=== PATIENT | male | born 1945 | race Caucasian/White ===

== ENCOUNTER 2020-06-19 14:53 | Outpatient (CLI) | payer MEDICARE, SELFPAY ==
[2020-06-19 15:24] LABS: Hematocrit 45.1 % (42.0-52.0); Mean Corpuscular HGB Conc 35.5 g/dl (32-36); Mean Corpuscular Hemoglobin 33.4 pg (26-34); Mean Corpuscular Volume 94.2 fl (80-100); Mean Platelet Volume 9.7 fl (7.4-10.4); Platelet Count Result 156 k/mm3 (150-375); Red Blood Count 4.79 M/mm3 (4.6-6.20); Red Cell Distribution Width 12.9 % (11.5-14.5); White Blood Count 6.8 K/mm3 (4.5-10.0)
[2020-06-19 15:26] LABS: Add Urine Microscopic? NO; Appearance Urine Clear (Clear); Bilirubin Urine Negative (Negative); Blood Urine Negative (Negative); Color Urine Yellow (Yellow); Glucose Urine UA Negative (Negative); Ketones Urine Negative (Negative); Leukocyte Esterase Ur Negative LEU/UL (NEGATIVE); Nitrate Urine Negative (Negative); Protein Urine Negative (Negative); Specific Grav Ur 1.013 (1.001-1.035); Urobilinogen Urine Negative mg/dL (<2.0)
[2020-06-19 16:04] LABS: Creatinine Urine 78.3 mg/dL
[2020-06-19 16:20] LABS: LDL Cholesterol Direct 76 mg/dL
[2020-06-19 16:25] LABS: Alanine Aminotransferase 20 U/L (4-50); Albumin Level 4.1 g/dL (3.5-5.1); Alkaline Phosphatase 79 U/L (38-126); Anion Gap 9 mmol/L (8-16); Aspartate Amino Transferase 24 U/L (17-59); Bilirubin,Total 1.4 mg/dL (0.2-1.3); Blood Urea Nitrogen 17 mg/dL (9-20); Calcium 9.1 mg/dL (8.4-10.2); Carbon Dioxide 28 mmol/L (22-30); Chloride 102 mmol/L (98-107); Cholesterol 132 mg/dL (0-200); Estimated Glomerular Filt Rate 59; Glucose 106 mg/dL (75-110); HDL Direct 31 mg/dL; Sodium 139 mmol/L (137-145); Triglycerides 128 mg/dL (<150)
[2020-06-19 16:39] LABS: Thyroid Stimulating Hormone 0.978 uIU/mL (0.465-4.680)
[2020-06-19 17:02] LABS: MALB Creatinine Ratio < 7.7 mg/g (0-30); Microalbumin Urine Random < 6.0 mg/L (0-16.7)
[2020-06-19 17:17] LABS: Potassium 3.9 mmol/L (3.4-5.0)
== END 2020-06-19 14:54 | disposition home or self-care (01) ==
PROVIDERS: PCP Family Medicine; Referring Provider Nurse Practitioner Adult Health; Visit Provider Family Medicine
DX: E11.65 Type 2 diabetes mellitus with hyperglycemia (principal); Z79.4 Long term (current) use of insulin; E78.2 Mixed hyperlipidemia; I10 Essential (primary) hypertension; R53.83 Other fatigue
CPT/HCPCS: 36415; 80053; 80061; 81003; 82043; 84443; 85027

== ENCOUNTER 2020-12-18 15:49 | Outpatient (CLI) | payer MEDICARE, SELFPAY | END 2020-12-18 15:50 | disposition home or self-care (01) | LOC: ANHCOVIDVC 15:49 | PROVIDERS: PCP Family Medicine | DX: Z23 Encounter for immunization (principal) | CPT/HCPCS: 0001A; 91300 ==

== ENCOUNTER 2020-12-22 11:44 | Outpatient (CLI) | payer MEDICARE, SELFPAY ==
[2020-12-22 12:28] LABS: Alanine Aminotransferase 28 U/L (4-50); Albumin Level 4.1 g/dL (3.5-5.1); Alkaline Phosphatase 84 U/L (38-126); Anion Gap 5 mmol/L (8-16); Aspartate Amino Transferase 28 U/L (17-59); Bilirubin,Total 1.3 mg/dL (0.2-1.3); Blood Urea Nitrogen 18 mg/dL (9-20); Calcium 9.1 mg/dL (8.4-10.2); Carbon Dioxide 32 mmol/L (22-30); Chloride 104 mmol/L (98-107); Cholesterol 130 mg/dL (0-200); Estimated Glomerular Filt Rate 59; Glucose 103 mg/dL (75-110); HDL Direct 30 mg/dL; Potassium 4.2 mmol/L (3.4-5.0); Sodium 141 mmol/L (137-145); Triglycerides 145 mg/dL (<150)
[2020-12-22 12:39] LABS: LDL Cholesterol Direct 70 mg/dL
== END 2020-12-22 11:45 | disposition home or self-care (01) ==
PROVIDERS: PCP Family Medicine; Visit Provider Nurse Practitioner Family
DX: E11.9 Type 2 diabetes mellitus without complications (principal); I11.9 Hypertensive heart disease without heart failure; I25.10 Atherosclerotic heart disease of native coronary artery without angina pectoris; E78.2 Mixed hyperlipidemia
CPT/HCPCS: 36415; 80053; 80061

== ENCOUNTER 2021-01-08 15:47 | Outpatient (CLI) | payer MEDICARE, SELFPAY | END 2021-01-08 15:48 | disposition home or self-care (01) | LOC: ANHCOVIDVC 15:47 | PROVIDERS: PCP Family Medicine | DX: Z23 Encounter for immunization (principal) | CPT/HCPCS: 0002A; 91300 ==

== ENCOUNTER 2021-04-24 10:47 | Outpatient (CLI) | payer MEDICARE, SELFPAY ==
[2021-04-24 11:20] LABS: Basophils Absolute Auto 0.1 K/mm3 (0.0-0.1); Basophils Percent Auto 0.9 % (0.2-1.2); Eosinophils Absolute Auto 0.3 K/mm3 (0-0.3); Hematocrit 48.3 % (42.0-52.0); Hemoglobin 16.4 g/dL (14.0-18.0); Immature Granulocyte Absolute 0.02 K/mm3 (0.00-0.031); Immature Granulocyte Percent A 0.3 % (0-0.5); Lymphocytes Absolute Auto 1.48 K/mm3 (0.9-3.2); Lymphocytes Percent Auto 21.8 % (18.3-44.2); Mean Corpuscular Hemoglobin 32.3 pg (26-34); Mean Corpuscular Volume 95.1 fl (80-100); Mean Platelet Volume 9.8 fl (7.4-10.4); Monocytes Absolute Auto 0.6 K/mm3 (0.1-0.6); Neutrophils Absolute Auto 4.3 K/mm3 (1.3-6.7); Platelet Count Result 155 k/mm3 (150-375); Red Blood Count 5.08 M/mm3 (4.6-6.20); Red Cell Distribution Width 13.2 % (11.5-14.5); White Blood Count 6.8 K/mm3 (4.5-10.0)
[2021-04-24 11:33] LABS: Alanine Aminotransferase 22 U/L (4-50); Albumin Level 4.2 g/dL (3.5-5.1); Alkaline Phosphatase 98 U/L (38-126); Anion Gap 10 mmol/L (8-16); Aspartate Amino Transferase 28 U/L (17-59); Bilirubin,Total 1.5 mg/dL (0.2-1.3); Blood Urea Nitrogen 21 mg/dL (9-20); Calcium 9.5 mg/dL (8.4-10.2); Carbon Dioxide 27 mmol/L (22-30); Chloride 104 mmol/L (98-107); Estimated Glomerular Filt Rate 54; Glucose 105 mg/dL (65-110); Potassium 3.9 mmol/L (3.4-5.0); Sodium 141 mmol/L (137-145)
[2021-04-24 11:47] LABS: Add Urine Microscopic? YES; Appearance Urine Clear (Clear); Bilirubin Urine Negative (Negative); Blood Urine Negative (Negative); Color Urine Straw (Yellow); Glucose Urine UA 3+ mg/dL (Negative); Ketones Urine Negative (Negative); Leukocyte Esterase Ur Negative LEU/UL (NEGATIVE); Mucus Urine Rare /lpf; Nitrate Urine Negative (Negative); Protein Urine Negative (Negative); RBC Urine 0-2 /hpf (0-2); Specific Grav Ur 1.011 (1.001-1.035); Squamous Epithelial Cell Urine Rare /hpf (Few); Urobilinogen Urine Negative mg/dL (<2.0); WBC Urine 0-3 /hpf (0-3)
[2021-04-24 12:03] LABS: Prostate Specific Antigen 1.6 ng/mL (< OR = 4.0)
== END 2021-04-24 10:48 | disposition home or self-care (01) ==
PROVIDERS: PCP Family Medicine; Visit Provider Nurse Practitioner Family
DX: E78.5 Hyperlipidemia, unspecified (principal); I25.10 Atherosclerotic heart disease of native coronary artery without angina pectoris; I11.9 Hypertensive heart disease without heart failure; E11.9 Type 2 diabetes mellitus without complications; Z79.4 Long term (current) use of insulin; Z12.5 Encounter for screening for malignant neoplasm of prostate
CPT/HCPCS: 36415; 80053; 81001; 84153; 84443; 85025; G0103

== ENCOUNTER 2021-07-05 16:09 | Outpatient (CLI) | payer MEDICARE, SELFPAY ==
[2021-07-05 16:57] LABS: Alanine Aminotransferase 46 U/L (4-50); Albumin Level 4.5 g/dL (3.5-5.1); Alkaline Phosphatase 85 U/L (38-126); Anion Gap 10 mmol/L (8-16); Aspartate Amino Transferase 35 U/L (17-59); Bilirubin,Total 1.5 mg/dL (0.2-1.3); Blood Urea Nitrogen 28 mg/dL (9-20); Calcium 9.1 mg/dL (8.4-10.2); Carbon Dioxide 26 mmol/L (22-30); Chloride 105 mmol/L (98-107); Estimated Glomerular Filt Rate > 60; Glucose 110 mg/dL (65-110); Potassium 3.9 mmol/L (3.4-5.0); Sodium 141 mmol/L (137-145)
[2021-07-05 17:14] LABS: Creatinine Urine 128.7 mg/dL
[2021-07-05 17:20] LABS: MALB Creatinine Ratio 6.1 mg/g (0-30); Microalbumin Urine Random 7.9 mg/L (0-16.7)
== END 2021-07-05 16:10 | disposition home or self-care (01) ==
PROVIDERS: PCP Family Medicine
DX: E11.65 Type 2 diabetes mellitus with hyperglycemia (principal); Z79.4 Long term (current) use of insulin
CPT/HCPCS: 36415; 80053; 82043

== ENCOUNTER 2021-09-14 08:06 | Outpatient (CLI) | payer MEDICARE, SELFPAY ==
--- NOTE | ~2021-09-14 | CT_ITS ---
EXAMINATION: CT lumbar spine wo con DATE: 09/14/2021 08:33 INDICATION: Lumbar radicular pain. TECHNIQUE: Computed tomography (CT) of the lumbar spine was performed without intravenous contrast. A utomated exposure control and iterative reconstruction technique were employed. The dose-length produ ct was 1389.44 mGy-cm. COMPARISON: None FINDINGS: There is 4 degrees dextrocurvature of lumbar spine. There is mild chronic anterior wedging of T11 and T12 vertebral bodies. There is 9 mm anterolisthesis of L4 on L5. There is mildly decreased disc height at L1-L2 and L2-L3, moderately decreased disc height at L4-L5, and mildly decreased disc height at L5-S1. The following disc levels are specifically discussed: L1-L2: The disc is bulging. There is mild bilateral facet joint osteoarthritis. There is mild bilater al neural foraminal stenosis. There is mild central canal stenosis. L2-L3: The disc is bulging. There is mild bilateral facet joint osteoarthritis. There is moderate dylan ateral neural foraminal stenosis. There is mild central canal stenosis. L3-L4: The disc is bulging. There is severe right and moderate left facet joint osteoarthritis. There is moderate right and mild left neural foraminal stenosis. There is mild central canal stenosis. L4-L5: The disc is bulging. There is severe bilateral facet joint osteoarthritis. There is moderate b ilateral neural foraminal stenosis. There is severe central canal stenosis. L5-S1: The disc is bulging. There is severe right and moderate left facet joint osteoarthritis. There is moderate right and mild left neural foraminal stenosis. There is mild central canal stenosis. IMPRESSION: 1. Severe lumbar spondylosis. Reviewed, dictated and finalized at location [facility]. R
== END 2021-09-14 08:07 | disposition home or self-care (01) ==
LOC: ANHIMG 08:09
PROVIDERS: PCP Family Medicine
DX: M47.26 Other spondylosis with radiculopathy, lumbar region (principal)
CPT/HCPCS: 72131

== ENCOUNTER 2021-11-14 15:26 | Outpatient (CLI) | payer MEDICARE, SELFPAY ==
--- NOTE | ~2021-11-14 | CT_ITS ---
EXAMINATION: CT brain wo con DATE: 11/14/2021 15:46 INDICATION: Diplopia. Right facial droop, right leg numbness TECHNIQUE: Computed tomography (CT) of the head was performed without intravenous contrast. The mA wa s adjusted according to patient size. Iterative reconstruction technique was employed. Exam dose: 68 1.00 mGy-cm total exam DLP. COMPARISON: 07/07/2019 CTA brain/carotid 07/07/2019 CT brain FINDINGS: Vertebral, basilar and bilateral carotid and supraclinoid internal carotid artery calcifica tions are noted. There is nonspecific diminished attenuation of the cerebral white matter, likely due to chronic small vessel ischemic changes. Again noted are scattered small chronic lacunar infarcts of the bilateral basal ganglia. Small chroni c lacunar infarct in the anterior limb of left internal capsule. There is moderately prominent cerebral and moderate cerebellar volume loss. No intracranial mass lesion or hemorrhage or recent cerebrovascular accident is evident. CT is not se nsitive for detection of hyperacute nonhemorrhagic infarct. No orbital or sellar or suprasellar mass lesion is evident. No subdural or epidural hematoma is detected. No fracture or bone destruction of the cranial vault. No skull fracture is evident. No skull bone destruction. The paranasal sinuses and mastoid air cells are normally developed and aerated. IMPRESSION: Cerebral atherosclerosis, chronic small vessel ischemic changes of the cerebral white ma tter and bilateral basal ganglia and anterior limb left internal capsule chronic lacunar infarcts No acute intracranial finding Reviewed, dictated and finalized at [facility]. Reviewed, dictated and finalized at location [facility]. DESIGNER IMPRESSION: Cerebral atherosclerosis, chronic small vessel ischemic changes of the cerebral white matter and bilateral basal ganglia and anterior limb left i nternal capsule chronic lacunar infarcts No acute intracranial finding
== END 2021-11-14 15:27 | disposition home or self-care (01) ==
PROVIDERS: PCP Family Medicine
DX: H53.2 Diplopia (principal); I67.9 Cerebrovascular disease, unspecified; I63.9 Cerebral infarction, unspecified
CPT/HCPCS: 70450

== ENCOUNTER 2021-11-14 16:32 | Emergency (ER) | payer MEDICARE, SELFPAY ==
[2021-11-14 17:11] VITALS: BP 152/96; PULSE 77; RESP 18; TEMP 36.6; O2SAT 98
--- NOTE | 2021-11-14 18:45 | ECG_ITS ---
Measurements Intervals [place] Rate: 70 P: 57 MT: 183 QRS: 150 QRSD: 129 T: -10 QT: 427 QTc: 463 Interpretive Statements ATRIAL SENSE- ELECTRONIC VENTRICULAR PACEMAKER BASELINE ARTIFACT- I, II, AVR, V3-V5 NO FURTHER INTERPRETATION IS POSSIBLE ATYPICAL ECG Electronically Signed On 11-14-2021 20:00:58 [employer] by Manpreet Stein D.O.
[2021-11-14 19:42] LABS: Basophils Percent Auto 0.5 % (0.2-1.2); Eosinophils Absolute Auto 0.1 K/mm3 (0-0.3); Eosinophils Percent Auto 0.9 % (0-4.4); Hematocrit 47.5 % (42.0-52.0); Hemoglobin 16.6 g/dL (14.0-18.0); Immature Granulocyte Absolute 0.03 K/mm3 (0.00-0.031); Immature Granulocyte Percent A 0.4 % (0-0.5); Lymphocytes Absolute Auto 1.65 K/mm3 (0.9-3.2); Lymphocytes Percent Auto 21.3 % (18.3-44.2); Mean Corpuscular HGB Conc 34.9 g/dl (32-36); Mean Corpuscular Hemoglobin 33.7 pg (26-34); Mean Corpuscular Volume 96.5 fl (80-100); Mean Platelet Volume 9.6 fl (7.4-10.4); Monocytes Absolute Auto 0.8 K/mm3 (0.1-0.6); Monocytes Percent Auto 10.3 % (2.6-8.5); Neutrophils Absolute Auto 5.2 K/mm3 (1.3-6.7); Neutrophils Percent Auto 66.6 % (45.5-73.1); Platelet Count Result 156 k/mm3 (150-375); Red Blood Count 4.92 M/mm3 (4.6-6.20); Red Cell Distribution Width 12.8 % (11.5-14.5); White Blood Count 7.8 K/mm3 (4.5-10.0)
[2021-11-14 19:53] LABS: Prothrombin Time 13.5 Seconds (11.1-14.7)
[2021-11-14 19:59] LABS: Alanine Aminotransferase 26 U/L (4-50); Albumin Level 4.6 g/dL (3.5-5.1); Alkaline Phosphatase 76 U/L (38-126); Anion Gap 8 mmol/L (8-16); Aspartate Amino Transferase 32 U/L (17-59); Bilirubin,Total 1.7 mg/dL (0.2-1.3); Blood Urea Nitrogen 23 mg/dL (9-20); Calcium 9.8 mg/dL (8.4-10.2); Carbon Dioxide 26 mmol/L (22-30); Chloride 108 mmol/L (98-107); Estimated CRCL calculation 69 ml/min; Estimated Glomerular Filt Rate > 60; Glucose 111 mg/dL (65-110); Potassium 3.8 mmol/L (3.4-5.0); Sodium 142 mmol/L (137-145)
[2021-11-14 20:10] LABS: Troponin I < 0.012 ng/mL (0.000-0.034)
--- NOTE | 2021-11-14 20:54 | ED.NEUROSD ---
HPI - Neuro Symptoms/Deficit General Chief Complaint: Neuro Symptoms/Deficit Stated Complaint: neuro symptoms Time Seen by Provider: 11/14/21 18:45 Source: patient Mode of arrival: ambulatory Limitations: no limitations History of Present Illness HPI Narrative: 76-year-old with a history of diabetes, CVA, CAD s/p pacemaker here with complaints of drooping of the right eye for past 1 week. Patient states that he has seen his primary doctor who referred him to the eye doctor and who later referred him to the ER. Patient had an outpatient CT scan this afternoon. he also complains of lower back pain for which he sees pain management doctor who referred them to physical therapy patient states that physical therapy was hurting him more so he went to see a chiropractor. He states he is having headache because of his unable to sleep through the right eye. No motor weakness. Onset (ago): week(s) (1) Location: other (Right) History of same: Yes Severity: moderate Quality: other (Drooping of the right eye lid) Relieving factors: none Exacerbating factors: none Context: gradual onset Related Data Home Medications Medication Instructions Recorded Confirmed apixaban 5 mg tablet 5 mg PO BID 06/19/20 06/29/21 carvedilol 6.25 mg tablet 6.25 mg PO Q12H 06/19/20 06/29/21 furosemide 40 mg tablet 40 mg PO QAM 06/19/20 06/29/21 gabapentin 300 mg capsule 300 mg PO TID 06/19/20 06/29/21 insulin lispro 100 unit/mL 17 unit SUB-Q QACBREAK ml 06/19/20 06/29/21 subcutaneous half-unit pen isosorbide mononitrate 60 mg 60 mg PO DAILY 06/19/20 06/29/21 tablet,extended release 24 hr liraglutide 0.6 mg/0.1 mL (18 mg/3 0.6 mg SUB-Q DAILY 06/19/20 06/29/21 mL) subcutaneous pen injector lovastatin 40 mg tablet 40 mg PO DAILY 06/19/20 06/29/21 magnesium oxide 500 mg tablet 500 mg PO DAILY 06/19/20 06/29/21 olmesartan 40 mg tablet 40 mg PO DAILY 06/19/20 06/29/21 omega-3 fatty acids 1,000 mg 1,000 mg PO DAILY 06/19/20 06/29/21 capsule potassium chloride 10 mEq 20 meq PO BID tablet 06/19/20 06/29/21 tablet,extended release ranolazine 500 mg tablet,extended 500 mg PO Q12H 06/19/20 06/29/21 release,12 hr Allergies Allergy/AdvReac Type Severity Reaction Status Date / Time hydrochlorothiazide Allergy Intermediate Unknown Verified 11/14/21 18:34 niacin Allergy Intermediate Unknown Verified 11/14/21 18:34 No Known Allergies Allergy Unknown Verified 08/23/21 10:16 Review of Systems Review of Systems: All systems reviewed & are unremarkable except as noted in HPI and below Constitutional: Constitutional: Reports no additional constitutional complaints Eyes: Eyes: Reports as per HPI ENT: Reports system reviewed and no additional complaints, except as documented Cardiovascular: Cardiovascular: Reports no additional cardiovascular complaints Respiratory: Respiratory: Reports no additional respiratory complaints Gastrointestinal: Gastrointestinal: Reports no additional gastrointestinal complaints Musculoskeletal: Musculoskeletal: Reports no additional musculoskeletal complaints Integumentary/Breasts: Skin/Breast: Reports system reviewed and no additional complaints, except as docu PMFSH Past Medical History Medical History CAD (coronary artery disease) GERD (gastroesophageal reflux disease) History of CVA (cerebrovascular accident) HLD (hyperlipidemia) Hypertension with heart disease Long-term insulin use Surgical History Surgical History History of cardiac pacemaker Family History Family History Mother Hypertension Father Cerebrovascular accident Other Family history of cardiovascular disease Social History Social History Smoking status: Never smoker Second hand tobacco smoke exposure: No Alcohol intake: form
== END 2021-11-14 21:11 | disposition home or self-care (01) ==
PROVIDERS: Emergency Provider Family Medicine; PCP Family Medicine
DX: H02.401 Unspecified ptosis of right eyelid (principal); I25.10 Atherosclerotic heart disease of native coronary artery without angina pectoris; E78.5 Hyperlipidemia, unspecified; I11.9 Hypertensive heart disease without heart failure; K21.9 Gastro-esophageal reflux disease without esophagitis; Z86.73 Personal history of transient ischemic attack (TIA), and cerebral infarction without residual deficits; Z79.01 Long term (current) use of anticoagulants; Z79.4 Long term (current) use of insulin; Z95.0 Presence of cardiac pacemaker
CPT/HCPCS: 36415; 70450; 80053; 84484; 85025; 85610; 93005; 99284

== ENCOUNTER 2021-12-03 10:36 | Outpatient (CLI) | payer MEDICARE, SELFPAY ==
[2021-12-03 11:53] LABS: Basophils Percent Auto 0.5 % (0.2-1.2); Eosinophils Absolute Auto 0.1 K/mm3 (0-0.3); Eosinophils Percent Auto 1.5 % (0-4.4); Hematocrit 44.3 % (42.0-52.0); Hemoglobin 15.7 g/dL (14.0-18.0); Immature Granulocyte Absolute 0.03 K/mm3 (0.00-0.031); Immature Granulocyte Percent A 0.5 % (0-0.5); Immature Platelet Fraction Pct 3.3 % (0.9-11.2); Lymphocytes Absolute Auto 1.27 K/mm3 (0.9-3.2); Lymphocytes Percent Auto 21.6 % (18.3-44.2); Mean Corpuscular HGB Conc 35.4 g/dl (32-36); Mean Corpuscular Hemoglobin 34.1 pg (26-34); Mean Corpuscular Volume 96.1 fl (80-100); Mean Platelet Volume 9.6 fl (7.4-10.4); Monocytes Absolute Auto 0.7 K/mm3 (0.1-0.6); Monocytes Percent Auto 11.4 % (2.6-8.5); Neutrophils Absolute Auto 3.8 K/mm3 (1.3-6.7); Neutrophils Percent Auto 64.5 % (45.5-73.1); Platelet Count Result 157 k/mm3 (150-375); Red Blood Count 4.61 M/mm3 (4.6-6.20); White Blood Count 5.9 K/mm3 (4.5-10.0)
[2021-12-03 11:55] LABS: Add Urine Microscopic? NO; Appearance Urine Clear (Clear); Bilirubin Urine Negative (Negative); Blood Urine Negative (Negative); Color Urine Yellow (Yellow); Glucose Urine UA Negative (Negative); Ketones Urine Negative (Negative); Leukocyte Esterase Ur Negative LEU/UL (Negative); Nitrate Urine Negative (Negative); Protein Urine Negative (Negative); Specific Grav Ur 1.021 (1.001-1.035); Urobilinogen Urine Negative mg/dL (<2.0)
[2021-12-03 12:01] LABS: Alanine Aminotransferase 29 U/L (4-50); Alkaline Phosphatase 97 U/L (38-126); Anion Gap 4 mmol/L (8-16); Aspartate Amino Transferase 27 U/L (17-59); Bilirubin,Total 0.8 mg/dL (0.2-1.3); Blood Urea Nitrogen 20 mg/dL (9-20); Calcium 8.8 mg/dL (8.4-10.2); Carbon Dioxide 27 mmol/L (22-30); Chloride 108 mmol/L (98-107); Estimated Glomerular Filt Rate > 60; Glucose 130 mg/dL (65-110); Potassium 4.1 mmol/L (3.4-5.0); Sodium 139 mmol/L (137-145)
[2021-12-03 12:04] LABS: INR 1.1; Prothrombin Time 14.1 Seconds (11.1-14.7)
[2021-12-03 12:05] LABS: Partial Thromboplastin Time 31.4 SECONDS (22.3-36.8)
== END 2021-12-03 10:37 | disposition home or self-care (01) ==
PROVIDERS: PCP Family Medicine; Visit Provider Internal Medicine Cardiovascular Disease
DX: M54.31 Sciatica, right side (principal); M46.90 Unspecified inflammatory spondylopathy, site unspecified; R07.9 Chest pain, unspecified; E78.5 Hyperlipidemia, unspecified; I63.50 Cerebral infarction due to unspecified occlusion or stenosis of unspecified cerebral artery; I12.9 Hypertensive chronic kidney disease with stage 1 through stage 4 chronic kidney disease, or unspecified chronic kidney disease; N18.2 Chronic kidney disease, stage 2 (mild); Z95.810 Presence of automatic (implantable) cardiac defibrillator; I42.9 Cardiomyopathy, unspecified; E11.9 Type 2 diabetes mellitus without complications; I25.10 Atherosclerotic heart disease of native coronary artery without angina pectoris; G47.30 Sleep apnea, unspecified
CPT/HCPCS: 36415; 80053; 81003; 85025; 85055; 85610; 85730

== ENCOUNTER → 2022-05-30 09:10 | Outpatient (CLI) | payer MEDICARE, SELFPAY ==
--- NOTE | ~2022-05-30 | CT_ITS ---
EXAMINATION: CT lumbar spine wo con DATE: 05/30/2022 09:28 INDICATION: Low back pain radiating down the legs. TECHNIQUE: Computed tomography (CT) of the lumbar spine was performed without intravenous contrast. A utomated exposure control and iterative reconstruction technique were employed. The dose-length produ ct was 845.61 mGy-cm. COMPARISON: Lumbar spine CT 09/14/2021 FINDINGS: There is 4 degrees dextrocurvature of lumbar spine. There is 9 mm anterolisthesis of L4 on L5 and 6 mm retrolisthesis of L5 on S1. There is mild chronic anterior wedging of T12 and L1 vertebra l bodies. There is mildly decreased disc height at L1-L2, moderately decreased disc height at L2-L3 a nd L4-L5, and mildly decreased disc height at L5-S1. The following disc levels are specifically discu ssed: L1-L2: The disc is bulging. There is mild right and moderate left facet joint osteoarthritis. There i s mild bilateral neural foraminal stenosis. There is mild central canal stenosis. L2-L3: The disc is bulging. There is moderate bilateral facet joint osteoarthritis. There is mild rig ht and moderate left neural foraminal stenosis. There is mild central canal stenosis. L3-L4: The disc is bulging. There is severe right and moderate left facet joint osteoarthritis. There is mild bilateral neural foraminal stenosis. There is mild central canal stenosis. L4-L5: The disc is bulging. There is severe bilateral facet joint osteoarthritis. There is moderate b ilateral neural foraminal stenosis. There is severe central canal stenosis. L5-S1: The disc is bulging. There is severe right and moderate left facet joint osteoarthritis. There is moderate right and mild left neural foraminal stenosis. There is mild central canal stenosis. IMPRESSION: 1. Severe lumbar spondylosis, stable from 09/14/2021. Reviewed, dictated and finalized at location [facility].
== END ==
PROVIDERS: PCP Family Medicine; Visit Provider Nurse Practitioner Family
DX: M47.896 Other spondylosis, lumbar region (principal)
CPT/HCPCS: 72131

== ENCOUNTER → 2022-07-02 11:42 | Outpatient (CLI) | payer MEDICARE, SELFPAY ==
--- NOTE | ~2022-07-02 | XR_ITS ---
XR lumbar spine 6V w bending 07/02/2022 12:30 Indication: Low back pain. Procedure: 7 views lumbar spine including flexion/extension views Comparison: 09/12/2006 Findings: There is disc narrowing and endplate degenerative change at all lumbar levels. There is gra de 1 degenerative spondylolisthesis at L4-5. There is moderate lower lumbar facet hypertrophy. No acu te fracture or traumatic malalignment. Normal lumbar lordosis. No significant alteration of alignment with flexion/extension. Sacral foramen are symmetric. Impression: 1: Severe lumbar spondylosis with grade 1 spondylolisthesis at L4-5. Reviewed, dictated and finalized at location [facility]. Impression: 1: Severe lumbar spondylosis with grade 1 spondylolisthesis at L4-5.
== END ==
PROVIDERS: PCP Family Medicine
DX: M43.10 Spondylolisthesis, site unspecified (principal); M47.896 Other spondylosis, lumbar region
CPT/HCPCS: 72114